=== PATIENT | female | born 1985 | race Caucasian/White ===

== ENCOUNTER 2018-02-15 10:38 | Outpatient (RCR) | payer OTHER | END 2018-03-11 | LOC: OT 10:38 | PROVIDERS: ATTEND Surgery Surgery of the Hand | DX: M20.031 Swan-neck deformity of right finger(s) (principal); M79.644 Pain in right finger(s); M25.641 Stiffness of right hand, not elsewhere classified ==

== ENCOUNTER 2018-03-26 14:03 | Outpatient (RCR) | payer OTHER | END 2018-04-11 | LOC: OT 14:03 | PROVIDERS: ATTEND Surgery Surgery of the Hand | DX: M20.031 Swan-neck deformity of right finger(s) (principal) | CPT/HCPCS: 97139; 97760 ==